=== PATIENT | male | born 1940 | race Caucasian/White ===

== ENCOUNTER → 2019-10-21 | Outpatient (CLI) | payer OTHER | LOC: SJCVC 12:58 | PROVIDERS: ATTEND Internal Medicine | DX: I10 Essential (primary) hypertension (principal); I73.9 Peripheral vascular disease, unspecified; I67.1 Cerebral aneurysm, nonruptured; E78.5 Hyperlipidemia, unspecified; Z79.899 Other long term (current) drug therapy; Z87.891 Personal history of nicotine dependence ==